=== PATIENT | male | born 1940 | race Caucasian/White ===

== ENCOUNTER → 2018-03-31 | Outpatient (CLI) | payer MEDICARE ==
--- NOTE | 2018-03-31 12:19 | Diagnostic Imaging Report ---
EXAMINATION: Renal ultrasound. CLINICAL HISTORY :Chronic kidney disease COMPARISON: <None available.> TECHNIQUE: Grayscale and color Doppler evaluation of the kidneys and bladder was performed in transverse and longitudinal planes. DISCUSSION: RIGHT KIDNEY: The right kidney measures 10.5 cm in length and shows normal renal cortical echogenicity. Mild hydronephrosis. No shadowing calculus or mass lesion. LEFT KIDNEY: Not visualized. BLADDER: Unremarkable in appearance. Significant post void residual volume of 282.5 cc. Prostate: 4.2 x 4.6 x 5 centimeters, estimated volume 50 cc IMPRESSION: Mild prostatomegaly with significant post void residual bladder volume as above, and mild right hydronephrosis. Nonvisualization of the left kidney. Signed by: Dr. John Quigley M.D. on 03/31/2018 12:16 PM
== END ==
LOC: US 10:32
PROVIDERS: ATTEND Internal Medicine Nephrology
DX: N18.4 Chronic kidney disease, stage 4 (severe) (principal)
CPT/HCPCS: 76770; 76857

== ENCOUNTER → 2019-07-17 | Outpatient (CLI) | payer MEDICARE ==
--- NOTE | 2019-07-17 11:55 | Diagnostic Imaging Report ---
EXAM: Renal Ultrasound INDICATION: Renal failure ^[id number] ^[id number] COMPARISON: Renal ultrasound of 03/31/2018 TECHNIQUE: Transverse and longitudinal images of the kidneys and bladder were obtained. FINDINGS: Right Kidney: Length: 10.6 cm Appearance: Normal echogenicity. Collecting system: No hydronephrosis Stones: None Cyst/Mass: None Left Kidney: Not visualized. Bladder: No mass or calculi. Right ureteral jet visualized. Prevoid volume estimate of 231 cc. The prostate measures 4.7 x 3.7 x 4.3 cm with volume estimate of 39 cc. IMPRESSION: No renal calculi or hydronephrosis on the right. The left kidney is again not visualized. Mild prostatomegaly. Signed by: Owen Baker MD on 07/17/2019 11:51 AM
== END ==
LOC: US 07:09
PROVIDERS: ATTEND Internal Medicine Nephrology
DX: N18.4 Chronic kidney disease, stage 4 (severe) (principal)
CPT/HCPCS: 76770

== ENCOUNTER 2024-11-28 08:55 | Inpatient (IN) | payer MEDICARE ==
[~2024-11-28] VITALS: Ht 170.2 cm; Wt 56.7 kg
[2024-11-28] VITALS (9 sets, daily range): BP systolic 116–140; BP diastolic 62–80; PULSE 67–119; RESP 12–20; TEMP 96.9–98.2; O2SAT 98–100
[2024-11-28 09:38] LABS: BASOPHILS % 0.5 % (0.0-1.0); EOSINOPHILS % 0.2 % (0.0-6.0); LYMPHOCYTES % 7.6 % (18.0-39.1); MONOCYTES % 5.6 % (4.4-11.3); NEUTROPHILS % 85.0 % (38.7-80.0); RED CELL DISTRIBUTION WIDTH 16.2 % (11.7-14.4)
[2024-11-28 09:59] LABS: EST GLOMERULAR FILTRATION RATE 6.0 ML/MIN (>=60)
[2024-11-28] MEDS ORDERED: INSULIN REGULAR, HUMAN 100 UNIT/1 ML ONE (10:57)
[2024-11-28] MEDS ORDERED: CEFTRIAXONE 2 GM in SODIUM CHLORIDE 0.9% 100 ML IV ONE (11:00)
[2024-11-28 11:12] LABS: LEUKOCYTE ESTERASE ,URINE NEGATIVE (NEGATIVE); PROTEIN,URINE DIPSTICK 1+ (NEGATIVE); URINE UROBILINOGEN 0.2 mg/dL (0.2 - 1)
[2024-11-28] MEDS: SODIUM BICARBONATE 8.4% INJ 50 ML SYR IV STA (11:16)
[2024-11-28] MEDS: INSULIN REGULAR, HUMAN 100 UNIT/1 ML IV ONE (11:16)
[2024-11-28] MEDS: CALCIUM GLUC 1 G/50 ML NACL 50 ML IV SCH (11:16)
[2024-11-28] MEDS: DEXTROSE 50% SYRINGE 50 ML IV STA (11:16)
[2024-11-28 11:32] LABS: EPITHELIAL CELLS,URINE RARE /LPF; WBC,URINE (MAN) 0-5 /HPF (0-5)
[2024-11-28] MEDS: ALBUTEROL SULF 0.083% NEB SOLN 3 ML NEB NEB STA (11:41)
[2024-11-28] MEDS: SODIUM CHLORIDE 0.9% 1000ML 1,000 ML IV SCH (12:58)
[2024-11-28 15:09] LABS: EST GLOMERULAR FILTRATION RATE 8.0 ML/MIN (>=60)
[2024-11-28] MEDS: SOD POLYSTYRENE SULFONATE SUSP 15 GM/60 ML BTL PO ONE (15:22)
[2024-11-28] MEDS ORDERED: BENZONATATE 100 MG CAP PO PRN (15:45)
[2024-11-28] MEDS ORDERED: DEXTROSE 50% SYRINGE 50 ML IV PRN (15:45)
[2024-11-28] MEDS ORDERED: LIDOCAINE 4% PATCH TP PRN (15:45)
[2024-11-28] MEDS ORDERED: ONDANSETRON HCL INJ 2MG/ML 2ML 2 MG/ML VIAL IV PRN (15:45)
[2024-11-28] MEDS ORDERED: HYDRALAZINE HCL 20 MG/ML VIAL IV PRN (15:45)
[2024-11-28] MEDS ORDERED: DIPHENHYDRAMINE HCL 25 MG CAP PO PRN (15:45)
[2024-11-28] MEDS ORDERED: DOCUSATE SODIUM 100 MG CAP PO PRN (15:45)
[2024-11-28] MEDS ORDERED: SIMETHICONE 80 MG CHEW PO PRN (15:45)
[2024-11-28] MEDS ORDERED: ALBUTEROL/IPRATROPIUM 3 ML NEB NEB PRN (15:45)
[2024-11-28] MEDS ORDERED: POTASSIUM CHLORIDE 20 MEQ TAB CR PO PRN (16:00)
[2024-11-28] MEDS ORDERED: SODIUM BICARBONATE 8.4% VIAL 150 ML in DEXTROSE 5% 1,000 ML IV SCH (16:30)
[2024-11-28] MEDS ORDERED: FLOMAX0.4 MG PO (17:19)
[2024-11-28] MEDS: SODIUM BICARBONATE 650 MG TAB PO SCH (17:19)
[2024-11-28] MEDS ORDERED: DORZOLAMIDE-TIM10 ML (17:19)
[2024-11-28] MEDS ORDERED: AMLODIPINE BESY10 MG PO (17:19)
[2024-11-28] MEDS: SODIUM BICARBONATE 8.4% VIAL 150 ML in DEXTROSE 5% 1,000 ML IV SCH (17:19)
[2024-11-28] MEDS ORDERED: ALLOPURINOL100 MG PO (17:19)
[2024-11-28] MEDS ORDERED: LATANOPROST2.5 ML (17:19)
[2024-11-28] MEDS: TAMSULOSIN HCL 0.4 MG CAP PO ONE (18:12)
[2024-11-29] VITALS (9 sets, daily range): BP systolic 107–137; BP diastolic 61–75; PULSE 70–108; RESP 17–20; TEMP 97.9–98.9; O2SAT 98–100
[2024-11-29 05:58] LABS: BASOPHILS % 0.4 % (0.0-1.0); EOSINOPHILS % 0.4 % (0.0-6.0); LYMPHOCYTES % 11.5 % (18.0-39.1); MONOCYTES % 5.4 % (4.4-11.3); NEUTROPHILS % 81.4 % (38.7-80.0); RED CELL DISTRIBUTION WIDTH 15.4 % (11.7-14.4)
[2024-11-29 06:41] LABS: EST GLOMERULAR FILTRATION RATE 9.0 ML/MIN (>=60)
[2024-11-29 07:03] LABS: PHOSPHORUS 6.1 MG/DL (2.3-4.7)
[2024-11-29] MEDS: SODIUM CHLORIDE 0.9% 250ML 250 ML IV ONE ×2 (10:36)
[2024-11-29] MEDS: PANTOPRAZOLE SOD 40 MG TABEC PO SCH (10:39)
[2024-11-30] VITALS (9 sets, daily range): BP systolic 115–131; BP diastolic 63–75; PULSE 64–85; RESP 16–20; TEMP 97.5–98.3; O2SAT 99–100
[2024-11-30 07:25] LABS: % IRON SATURATION 23.0 % (15-50)
[2024-11-30 11:04] LABS: EST GLOMERULAR FILTRATION RATE 9.0 ML/MIN (>=60)
[2024-11-30] MEDS: DORZOLAMIDE/TIMOLOL (OPTH SOL) 10 ML DRPETTE OP SCH (13:00)
[2024-11-30] MEDS: LATANOPROST(OPTH) 2.5 ML BTL OP SCH ×2 (13:00→22:18)
[2024-11-30] MEDS: TAMSULOSIN HCL 0.4 MG CAP PO SCH (17:15)
[2024-12-01] VITALS (7 sets, daily range): BP systolic 115–136; BP diastolic 58–74; PULSE 61–101; RESP 17–19; TEMP 98.1–100; O2SAT 97–100
[2024-12-01] MEDS: METOPROLOL TARTRATE INJ 1 MG/ML VIAL IV PRN (01:30)
[2024-12-01 06:47] LABS: EST GLOMERULAR FILTRATION RATE 11.0 ML/MIN (>=60)
[2024-12-01] MEDS: METOPROLOL TARTRATE 25 MG TAB PO SCH (09:15)
[2024-12-01] MEDS: AMIODARONE HCL 200 MG TAB PO SCH (16:42)
[2024-12-01] MEDS: MELATONIN 5 MG TABLET PO PRN (21:01)
[2024-12-01] MEDS: ACETAMINOPHEN 325 MG TAB PO PRN (22:01)
[2024-12-02] VITALS (10 sets, daily range): BP systolic 102–127; BP diastolic 52–66; PULSE 46–86; RESP 18–20; TEMP 97.6–98.7; O2SAT 96–100
[2024-12-03] VITALS (10 sets, daily range): BP systolic 104–125; BP diastolic 48–68; PULSE 48–82; RESP 17–20; TEMP 97.7–98.5; O2SAT 97–100
[2024-12-03 06:28] LABS: BASOPHILS % 1.1 % (0.0-1.0); EOSINOPHILS % 3.5 % (0.0-6.0); LYMPHOCYTES % 20.4 % (18.0-39.1); MONOCYTES % 12.7 % (4.4-11.3); NEUTROPHILS % 60.5 % (38.7-80.0); RED CELL DISTRIBUTION WIDTH 17.3 % (11.7-14.4)
[2024-12-03 06:40] LABS: EST GLOMERULAR FILTRATION RATE 11.0 ML/MIN (>=60); PHOSPHORUS 6.0 MG/DL (2.3-4.7)
[2024-12-03] MEDS: HEPARIN SOD (PORCINE) 5,000 UNIT/ML VIAL SC SCH (21:05)
[2024-12-04] VITALS (9 sets, daily range): BP systolic 106–121; BP diastolic 56–76; PULSE 55–76; RESP 17–20; TEMP 97.8–98.4; O2SAT 98–100
[2024-12-04 07:15] LABS: BASOPHILS % 0.8 % (0.0-1.0); EOSINOPHILS % 3.8 % (0.0-6.0); LYMPHOCYTES % 23.4 % (18.0-39.1); MONOCYTES % 10.2 % (4.4-11.3); NEUTROPHILS % 60.1 % (38.7-80.0); RED CELL DISTRIBUTION WIDTH 17.0 % (11.7-14.4)
[2024-12-04 07:40] LABS: EST GLOMERULAR FILTRATION RATE 12.0 ML/MIN (>=60); PHOSPHORUS 5.1 MG/DL (2.3-4.7)
[2024-12-04] MEDS: SODIUM BICARBONATE 650 MG TAB PO SCH (11:08)
[2024-12-05] VITALS (9 sets, daily range): BP systolic 106–150; BP diastolic 56–67; PULSE 52–71; RESP 16–20; TEMP 97–98.6; O2SAT 96–100
[2024-12-05] MEDS: CALCIUM GLUC 1 G/50 ML NACL 50 ML IV SCH (00:18)
[2024-12-05] MEDS: SODIUM CHLORIDE 0.9% 250ML 250 ML ONE (01:49)
[2024-12-05 06:34] LABS: BASOPHILS % 0.7 % (0.0-1.0); EOSINOPHILS % 3.2 % (0.0-6.0); LYMPHOCYTES % 23.3 % (18.0-39.1); MONOCYTES % 7.6 % (4.4-11.3); NEUTROPHILS % 63.9 % (38.7-80.0); RED CELL DISTRIBUTION WIDTH 16.9 % (11.7-14.4)
[2024-12-05 07:11] LABS: EST GLOMERULAR FILTRATION RATE 14.0 ML/MIN (>=60); PHOSPHORUS 4.9 MG/DL (2.3-4.7)
[2024-12-05 11:08] LABS: EOSINOPHILS % (MANUAL) 2 % (0-7); LYMPHOCYTES % (MANUAL) 22 % (19-48); METAMYELOCYTES % (MANUAL) 3 % (0-0); MONOCYTES % (MANUAL) 7 % (3.4-9.0); NEUTROPHILS % (MANUAL) 66 % (40-74)
[2024-12-05 11:09] LABS: PLATELET ESTIMATE ADEQUATE; PLATELET MORPHOLOGY COMMENT NORMAL
[2024-12-06] VITALS (7 sets, daily range): BP systolic 100–130; BP diastolic 55–77; PULSE 51–80; RESP 14–20; TEMP 97.8–98.6; O2SAT 97–100
[2024-12-06 06:56] LABS: BASOPHILS % 0.7 % (0.0-1.0); EOSINOPHILS % 3.6 % (0.0-6.0); LYMPHOCYTES % 25.4 % (18.0-39.1); MONOCYTES % 7.6 % (4.4-11.3); NEUTROPHILS % 61.5 % (38.7-80.0); RED CELL DISTRIBUTION WIDTH 17.1 % (11.7-14.4)
[2024-12-06 07:24] LABS: EST GLOMERULAR FILTRATION RATE 15.0 ML/MIN (>=60); PHOSPHORUS 4.0 MG/DL (2.3-4.7)
[2024-12-06] MEDS: METOPROLOL TARTRATE 25 MG TAB PO SCH (08:29)
[2024-12-06 09:17] LABS: EOSINOPHILS % (MANUAL) 2 % (0-7); LYMPHOCYTES % (MANUAL) 24 % (19-48); MONOCYTES % (MANUAL) 3 % (3.4-9.0); NEUTROPHILS % (MANUAL) 71 % (40-74); PLATELET ESTIMATE ADEQUATE; PLATELET MORPHOLOGY COMMENT NORMAL; RBC MORPHOLOGY COMMENT NORMAL
[2024-12-07] VITALS (9 sets, daily range): BP systolic 86–120; BP diastolic 49–91; PULSE 51–108; RESP 18; TEMP 97.7–98.7; O2SAT 97–100
[2024-12-07 05:54] LABS: BASOPHILS % 0.8 % (0.0-1.0); EOSINOPHILS % 3.3 % (0.0-6.0); LYMPHOCYTES % 22.6 % (18.0-39.1); MONOCYTES % 7.7 % (4.4-11.3); NEUTROPHILS % 64.1 % (38.7-80.0); RED CELL DISTRIBUTION WIDTH 17.2 % (11.7-14.4)
[2024-12-07 06:26] LABS: EST GLOMERULAR FILTRATION RATE 16.0 ML/MIN (>=60); PHOSPHORUS 4.5 MG/DL (2.3-4.7)
[2024-12-07] MEDS: CALCIUM GLUC 1 G/50 ML NACL 50 ML IV ONE ×2 (09:40→10:31)
[2024-12-07] MEDS ORDERED: SODIUM BICARBO650 MG PO (11:33)
[2024-12-07] MEDS ORDERED: AMIODARONE HCL200 MG PO (11:33)
[2024-12-07] MEDS ORDERED: LOPRESSOR25 MG PO (11:33)
[2024-12-07] MEDS: CALCIUM CARBONATE 500 MG CHEWABLE TABS PO ONE (11:37)
[2024-12-07 16:00] LABS: EST GLOMERULAR FILTRATION RATE 18.0 ML/MIN (>=60)
== END 2024-12-07 17:35 | DRG 56 ==
LOC: ER 09:00 → ERHOLD 14:25 → MED/SURG3 16:14
PROVIDERS: ADMIT Internal Medicine; ATTEND Internal Medicine
PROC: 0T9B70Z Drainage of Bladder with Drainage Device, Via Natural or Artificial Opening (ICD-10-PCS; principal; 2024-11-28)
PROC: 30233N1 Transfusion of Nonautologous Red Blood Cells into Peripheral Vein, Percutaneous Approach (ICD-10-PCS; 2024-11-29)
DX: G91.2 (Idiopathic) normal pressure hydrocephalus (principal); G93.41 Metabolic encephalopathy; N17.9 Acute kidney failure, unspecified; E87.20 Acidosis, unspecified; N13.8 Other obstructive and reflux uropathy; I12.0 Hypertensive chronic kidney disease with stage 5 chronic kidney disease or end stage renal disease; G81.91 Hemiplegia, unspecified affecting right dominant side; Q60.0 Renal agenesis, unilateral; I48.92 Unspecified atrial flutter; N18.5 Chronic kidney disease, stage 5; R29.6 Repeated falls; R26.9 Unspecified abnormalities of gait and mobility; H40.9 Unspecified glaucoma; R53.1 Weakness; R41.0 Disorientation, unspecified; R33.9 Retention of urine, unspecified; E87.5 Hyperkalemia; M19.011 Primary osteoarthritis, right shoulder; N40.1 Benign prostatic hyperplasia with lower urinary tract symptoms; D63.1 Anemia in chronic kidney disease; R39.14 Feeling of incomplete bladder emptying; Z60.2 Problems related to living alone; G31.9 Degenerative disease of nervous system, unspecified; I48.0 Paroxysmal atrial fibrillation; E78.5 Hyperlipidemia, unspecified; G93.89 Other specified disorders of brain; Z91.81 History of falling; Z91.158 Patient's noncompliance with renal dialysis for other reason
CPT/HCPCS: 36415; 51700; 70450; 70551; 71045; 72125; 76770; 80048; 80053; 81001; 82607; 82728; 82746; 83540; 83735; 84100; 84466; 84484; 85014; 85018; 85025; 86850; 86900; 86920; 87086; 93005; 93306; 93880; 94640; 94799; 99285; J1644; J2470; J7030; J7050; J7070; J7799; P9016